=== PATIENT | female | born 1995 | race Caucasian/White ===

== ENCOUNTER 2017-07-03 22:33 | Emergency (ER) | payer SELFPAY ==
[2017-07-03] MEDS ORDERED: TETRACAINE HCL 0.5% OPH SOLN 2 ML OD ONE (23:02)
[2017-07-03] MEDS ORDERED: POLYMYXIN B SULFATE/TMP OPH SOLN (10 ML/ER DISP) OD PRN (23:44)
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
[2017-07-04 00:08] VITALS: BP 128/64
== END 2017-07-04 00:06 | disposition home or self-care (01) ==
LOC: ER 22:33
DX: T15.01XA Foreign body in cornea, right eye, initial encounter (principal); X58.XXXA Exposure to other specified factors, initial encounter
CPT/HCPCS: 99283; J3490